=== PATIENT | female | born 2000 | race Two or more races ===

== ENCOUNTER 2022-01-07 02:07 | Emergency (ER) | payer OTHER ==
[~2022-01-07] VITALS: Ht 154.9 cm; Wt 49.9 kg
[2022-01-07] MEDS ORDERED: ZOFRAN8 MG PO (04:36)
[2022-01-07] MEDS ORDERED: PEPCID AC20 MG PO (04:36)
== END 2022-01-07 04:50 | disposition home or self-care (01) ==
LOC: ER 02:07
DX: K52.9 Noninfective gastroenteritis and colitis, unspecified (principal)

== ENCOUNTER 2022-05-21 00:43 | Inpatient (IN) | payer OTHER ==
[~2022-05-21] VITALS: Ht 154.9 cm; Wt 56.2 kg
[~2022-05-21 00:43] MED LIST: PEPCID AC20 MG PO; ZOFRAN8 MG PO
[2022-05-21] MEDS ORDERED: PRENATAL CAPLE1 EAC1 PO (02:29)
[2022-05-21] MEDS ORDERED: IRON325 MG PO (02:30)
== END 2022-05-22 09:51 | disposition home or self-care (01) | DRG 833 ==
LOC: LDR 00:43
PROVIDERS: ADMIT Obstetrics & Gynecology; ATTEND Obstetrics & Gynecology
PROC: BU4CZZZ Ultrasonography of Uterus and Ovaries (ICD-10-PCS; principal; 2022-05-21)
PROC: BY4FZZZ Ultrasonography of Third Trimester, Single Fetus (ICD-10-PCS; 2022-05-21)
PROC: 4A1HXCZ Monitoring of Products of Conception, Cardiac Rate, External Approach (ICD-10-PCS; 2022-05-21)
DX: O60.03 Preterm labor without delivery, third trimester (principal); Z3A.32 32 weeks gestation of pregnancy; Z20.822 Contact with and (suspected) exposure to COVID-19

== ENCOUNTER 2022-07-04 10:41 | Inpatient (IN) | payer OTHER ==
[~2022-07-04] VITALS: Ht 154.9 cm; Wt 59.4 kg
[~2022-07-04 10:41] MED LIST changes: +IRON325 MG PO; +PRENATAL CAPLE1 EAC1 PO
== END 2022-07-07 15:37 | disposition home or self-care (01) | DRG 788 ==
LOC: OB/GYN 10:41 → LDR 10:41 → OB/GYN 17:18
PROVIDERS: ADMIT Obstetrics & Gynecology; ATTEND Obstetrics & Gynecology
PROC: 4A1HXCZ Monitoring of Products of Conception, Cardiac Rate, External Approach (ICD-10-PCS; 2022-07-04)
PROC: 10D00Z1 Extraction of Products of Conception, Low, Open Approach (ICD-10-PCS; principal; 2022-07-04 21:30)
DX: O76 Abnormality in fetal heart rate and rhythm complicating labor and delivery (principal); Z3A.38 38 weeks gestation of pregnancy; Z37.0 Single live birth; Z20.822 Contact with and (suspected) exposure to COVID-19